=== PATIENT | female | born 1995 | race African-American/Black ===

== ENCOUNTER 2016-09-05 12:25 | Emergency (ER) | payer SELFPAY ==
[~2016-09-05] VITALS: Ht 165.1 cm; Wt 50.0 kg
[~2016-09-05 12:25] MED LIST: FLAG500T PO
[2016-09-05 12:28] VITALS: BP 103/60; PULSE 84; RESP 16; TEMP 97.9; O2SAT 100
--- NOTE | 2016-09-05 12:58 | PD ---
HPI Chief Complaint: Abdominal Pain Time Seen by Provider: 12:50 Travel History International Travel<30 days: No Contact w/Intl Traveler<30days: No Traveled to known affect area: No History of Present Illness HPI This is a 20-year-old female with no significant past medical history presents for evaluation of abdominal pain and nausea. Symptoms started 1 week ago. She describes it as a crampy pain in the epigastrium that comes and goes. There is associated nausea throat week. She has been trying to have a normal diet. She denies any vomiting, diarrhea or constipation, abnormal vaginal discharge or bleeding, dysuria, increased urinary frequency or hesitancy, flank pain, cough or congestion, fevers or chills. She has never had this sort of pain before. Her last menstrual period Was August 27. No other complaints. PFSH Past Medical History ?: Not : 0 Social History Alcohol Use: No Tobacco Use: No Substance Use: No Allergies-Medications (Allergen,Severity, Reaction): Coded Allergies: No Known Allergies (Unverified , 09/05/16) Reported Meds & Prescriptions Reported Meds & Active Scripts Active No Active Prescriptions or Reported Medications Review of Systems Except as stated in HPI: all other systems reviewed are Neg Physical Exam Narrative GENERAL: Well-developed well-nourished female in no acute distress SKIN: Warm and dry. HEAD: Atraumatic. Normocephalic. EYES: Pupils equal and round. No scleral icterus. No injection or drainage. ENT: No nasal bleeding or discharge. Mucous membranes pink and moist. NECK: Trachea midline. No JVD. CARDIOVASCULAR: Regular rate and rhythm. No murmur appreciated. RESPIRATORY: No accessory muscle use. Clear to auscultation. Breath sounds equal bilaterally. GASTROINTESTINAL: Abdomen soft, mild epigastric tenderness without guarding. MUSCULOSKELETAL: No obvious deformities. No edema. NEUROLOGICAL: Awake and alert. No obvious cranial nerve deficits. Motor grossly within normal limits. Normal speech. Data Data Last Documented VS Vital Signs Date Time Temp Pulse Resp B/P Pulse Ox O2 Delivery O2 Flow Rate FiO2 09/05/16 12:28 97.9 84 16 103/60 100 Room Air Orders Complete Blood Count With Diff (09/05/16 12:55) Comprehensive Metabolic Panel (09/05/16 12:55) Lipase (09/05/16 12:55) Urinalysis - C+S If Indicated (09/05/16 12:55) Ed Urine Pregnancytest Poc (09/05/16 12:55) Labs Laboratory Tests Test 09/05/16 13:03 White Blood Count 4.6 TH/MM3 Red Blood Count 4.89 MIL/MM3 Hemoglobin 12.7 GM/DL Hematocrit 39.4 % Mean Corpuscular Volume 80.6 FL Mean Corpuscular Hemoglobin 25.9 PG Mean Corpuscular Hemoglobin 32.1 % Concent Red Cell Distribution Width 13.1 % Platelet Count 264 TH/MM3 Mean Platelet Volume 8.3 FL Neutrophils (%) (Auto) 37.5 % Lymphocytes (%) (Auto) 54.8 % Monocytes (%) (Auto) 6.5 % Eosinophils (%) (Auto) 0.4 % Basophils (%) (Auto) 0.8 % Neutrophils # (Auto) 1.7 TH/MM3 Lymphocytes # (Auto) 2.5 TH/MM3 Monocytes # (Auto) 0.3 TH/MM3 Eosinophils # (Auto) 0.0 TH/MM3 Basophils # (Auto) 0.0 TH/MM3 CBC Comment DIFF FINAL Differential Comment MDM Medical Decision Making Medical Screen Exam Complete: Yes Emergency Medical Condition: Yes Medical Record Reviewed: Yes Differential Diagnosis Gastroenteritis, gastritis, peptic ulcer disease, pancreatitis, biliary pathology, Vish Alex syndrome Narrative Course 20-year-old female presents with 1 week of intermittent epigastric discomfort and nausea. Physical examination is benign. Mild epigastric tenderness to palpation. This patient was initially seen in triage where basic lab work has been ordered. The patient was admitted to medical bed when one becomes available. Scripts No Active Prescriptions or Reported Meds Alexy Boyer Sep 05, 2016 12:58
[2016-09-05 13:19] LABS: AUTOMATED NEUTROPHIL # 1.7 TH/MM3 (1.8-7.7); BASOPHIL % 0.8 % (0.0-2.0); EOSINOPHIL % 0.4 % (0.0-4.0); HEMATOCRIT 39.4 % (35.0-46.0); HEMO FLAGS DIFF FINAL; LYMPH % 54.8 % (9.0-44.0); LYMPHOCYTE # 2.5 TH/MM3 (1.0-4.8); MEAN CELL VOLUME 80.6 FL (80.0-100.0); MEAN CORPUSCULAR HEMOGLOBIN 25.9 PG (27.0-34.0); MEAN CORPUSCULAR HGB CONC 32.1 % (32.0-36.0); MONO % 6.5 % (0.0-8.0); NEUT % 37.5 % (16.0-70.0); PLATELET COUNT 264 TH/MM3 (150-450); RED BLOOD COUNT 4.89 MIL/MM3 (4.00-5.30); RED CELL DISTRIBUTION WIDTH 13.1 % (11.6-17.2); WHITE BLOOD COUNT 4.6 TH/MM3 (4.0-11.0)
[2016-09-05 13:41] LABS: ANION GAP 7 MEQ/L (5-15); AST (GOT) 9 U/L (15-37); BICARBONATE 27.1 MEQ/L (21.0-32.0); BLOOD UREA NITROGEN 11 MG/DL (7-18); CHLORIDE 103 MEQ/L (98-107); GLOMERULAR FILTRATION RATE 123 ML/MIN (>89); POTASSIUM 3.8 MEQ/L (3.5-5.1); SODIUM (NA) 137 MEQ/L (136-145)
[2016-09-05 13:45] LABS: ALKALINE PHOSPHATASE 47 U/L (45-117); ALT (GPT) 14 U/L (10-53); TOTAL BILIRUBIN ADULT 0.3 MG/DL (0.2-1.0)
[2016-09-05 13:50] LABS: BACTERIA, URINE RARE /hpf; BLOOD, URINE NEG (NEG); COMMENT (UR) CULT NOT INDICATED; CULTURE IF INDICATED CULT NOT INDICATED; GLUCOSE,URINE NEG (NEG); KETONE, URINE NEG (NEG); MUCUS URINE FEW /lpf (OCC); NITRITE,URINE NEG (NEG); PH, URINE 7.5 (5.0-8.5); SQUAMOUS EPITHELIAL CELL URINE 1 /hpf (0-5); URINE COLOR YELLOW (YELLW/STRAW)
[2016-09-05] MEDS ORDERED: PANTOPRAZOLE SODIUM 40 MG VIAL IVP ONE (14:15)
[2016-09-05] MEDS ORDERED: ALUMINUM/MAGNESIUM/SIMETH 30 ML CUP PO ONE (14:15)
[2016-09-05] MEDS ORDERED: LIDOCAINE VISCOUS 2% SOLN 15 ML UDC PO ONE (14:15)
[2016-09-05] MEDS ORDERED: ONDANSETRON HCL 4 MG/2 ML VIAL IVP ONE (14:15)
--- NOTE | 2016-09-05 14:15 | PD ---
Data Data Last Documented VS Vital Signs Date Time Temp Pulse Resp B/P Pulse Ox O2 Delivery O2 Flow Rate FiO2 09/05/16 12:28 97.9 84 16 103/60 100 Room Air Orders Complete Blood Count With Diff (09/05/16 12:55) Comprehensive Metabolic Panel (09/05/16 12:55) Lipase (09/05/16 12:55) Urinalysis - C+S If Indicated (09/05/16 12:55) Ed Urine Pregnancytest Poc (09/05/16 12:55) Ondansetron Inj (Zofran Inj) (09/05/16 14:15) Pantoprazole Inj (Protonix Inj) (09/05/16 14:15) Al-Mag Hy-Si 40-40-4 Mg/Ml Liq (Mag-Al P (09/05/16 14:15) Lidocaine 2% Viscous (Xylocaine 2% Visco (09/05/16 14:15) Labs Laboratory Tests Test 09/05/16 09/05/16 13:01 13:03 Urine Color YELLOW Urine Turbidity CLEAR Urine pH 7.5 Urine Specific [place] 1.018 Urine Protein NEG mg/dL Urine Glucose (UA) NEG mg/dL Urine Ketones NEG mg/dL Urine Occult Blood NEG Urine Nitrite NEG Urine Bilirubin NEG Urine Urobilinogen LESS THAN 2.0 MG/DL Urine Leukocyte Esterase NEG Urine RBC LESS THAN 1 /hpf Urine WBC LESS THAN 1 /hpf Urine Squamous Epithelial 1 /hpf Cells Urine Bacteria RARE /hpf Urine Mucus FEW /lpf Microscopic Urinalysis Comment CULT NOT INDICATED White Blood Count 4.6 TH/MM3 Red Blood Count 4.89 MIL/MM3 Hemoglobin 12.7 GM/DL Hematocrit 39.4 % Mean Corpuscular Volume 80.6 FL Mean Corpuscular Hemoglobin 25.9 PG Mean Corpuscular Hemoglobin 32.1 % Concent Red Cell Distribution Width 13.1 % Platelet Count 264 TH/MM3 Mean Platelet Volume 8.3 FL Neutrophils (%) (Auto) 37.5 % Lymphocytes (%) (Auto) 54.8 % Monocytes (%) (Auto) 6.5 % Eosinophils (%) (Auto) 0.4 % Basophils (%) (Auto) 0.8 % Neutrophils # (Auto) 1.7 TH/MM3 Lymphocytes # (Auto) 2.5 TH/MM3 Monocytes # (Auto) 0.3 TH/MM3 Eosinophils # (Auto) 0.0 TH/MM3 Basophils # (Auto) 0.0 TH/MM3 CBC Comment DIFF FINAL Differential Comment Sodium Level 137 MEQ/L Potassium Level 3.8 MEQ/L Chloride Level 103 MEQ/L Carbon Dioxide Level 27.1 MEQ/L Anion Gap 7 MEQ/L Blood Urea Nitrogen 11 MG/DL Creatinine 0.72 MG/DL Estimat Glomerular Filtration 123 ML/MIN Rate Random Glucose 88 MG/DL Calcium Level 8.4 MG/DL Total Bilirubin 0.3 MG/DL Aspartate Amino Transf 9 U/L (AST/SGOT) Alanine Aminotransferase 14 U/L (ALT/SGPT) Alkaline Phosphatase 47 U/L Total Protein 7.1 GM/DL Albumin 3.9 GM/DL Lipase 138 U/L MDM Supervised Visit with CARO: Yes Narrative Course I, Dr. Johansen, have reviewed the advance practice practitioner's documentation and am in agreement, met with the patient face to face, made the diagnosis, and the medical decision making was done by me. See his note for further details. The patient was initially evaluated in triage by my PA and brought back to a medical bed and my pod once one became available about an hour after the patient arrived to the emergency department. Briefly this is a 20-year-old female with no significant past medical history who is here for evaluation of epigastric abdominal pain and nausea. Symptoms have been going on for about a week. Pain is epigastric and left upper quadrant , described as burning. She denies alcohol abuse. No urinary symptoms. No vaginal bleeding or discharge. No history of abdominal surgeries. On physical exam the patient is very comfortable. She has mild epigastric and left upper quadrant tenderness. No right upper quadrant tenderness. Negative Worthy sign. Vital signs are all within normal limits. CBC shows WBC 4.6, hemoglobin 12.7, hematocrit 39.4, platelets 264, neutrophils 37%, lymphocytes 55%. CMP is unremarkable. Lipase is 138. UA is not suggestive of UTI. Urine test is negative. Patient was given a GI cocktail, IV Zofran, and IV Protonix with improvement in symptoms. She likely has gastritis or peptic ulcer disease. She does not have an acute abdomen. No imaging is warranted at this time. She is stable for discharge home with outpatient follow-up with a primary care physician this week. She will be discharged home with prescription for Protonix and Zofran. She was informed on when to return to the emergency department. She verbalizes understanding and agreement with plan. Diagnosis Primary Impression: Epigastric abdominal pain Referrals: Primary Care Physician 3 days Additional Instruction: Follow-up with a primary care physician this week. Return to the emergency department for worsening symptoms or any other concerns. Scripts Ondansetron Odt (Zofran Odt)4 Mg Tab4 Mg SL Q8HR PRN (Nausea/Vomiting) #15 TAB Ref 0 Prov:Zachariah Johansen MD 09/05/16 Pantoprazole (Protonix)40 Mg Tab40 Mg PO DAILY #30 TAB Ref 0 Prov:Zachariah Johansen MD 09/05/16 Disposition: 01 DISCHARGE HOME Condition: Stable Zachariah Johansen MD Sep 05, 2016 14:14
[2016-09-05] MEDS ORDERED: PROT40TA PO (14:52)
[2016-09-05] MEDS ORDERED: ZOFR4TAB3 SL (14:52)
== END 2016-09-05 15:16 | disposition home or self-care (01) ==
LOC: NEPC 12:25
DX: R10.13 Epigastric pain (principal)
CPT/HCPCS: 80053; 81001; 83690; 84703; 85025; 96374; 96375; 99284; C9113; J2405

== ENCOUNTER 2017-04-01 13:22 | Emergency (ER) | payer SELFPAY ==
[~2017-04-01] VITALS: Ht 160 cm; Wt 43.0 kg
[~2017-04-01 13:22] MED LIST changes: -FLAG500T PO; +PROT40TA PO; +ZOFR4TAB3 SL
[2017-04-01 13:24] VITALS: BP 118/74; PULSE 82; RESP 12; TEMP 98.8; O2SAT 100
== END 2017-04-01 18:17 | disposition left against medical advice (07) ==
LOC: NETRI 13:22
DX: R10.9 Unspecified abdominal pain (principal); R50.9 Fever, unspecified; Z53.21 Procedure and treatment not carried out due to patient leaving prior to being seen by health care provider
CPT/HCPCS: 99281